=== PATIENT | female | born 1965 | race Two or more races ===

== ENCOUNTER 2018-08-18 11:04 | Inpatient (IN) | payer MEDICAID ==
[~2018-08-18] VITALS: Ht 157.5 cm; Wt 60.6 kg
[2018-08-18 11:12] VITALS: Ht 157.5 cm; Wt 60.6 kg
[2018-08-18 13:14] LABS: BASOPHIL % 0.4 % (0-2); PLATELET COUNT 194 x10^3mcL (130-400); RED CELL DISTRIBUTION WIDTH 12.8 % (11.5-14.5)
[2018-08-18 13:21] LABS: CALCIUM 9.7 mg/dL (8.5-10.1); CARBON DIOXIDE 33.4 mmol/L (21-32); CHLORIDE SERUM 103 mmol/L (98-107); CREATININE SERUM 0.8 mg/dL (0.6-1.0); GFR1 > 60 mL/min; GLUCOSE SERUM 91 mg/dL (74-106); POTASSIUM SERUM 3.9 mmol/L (3.5-5.1); SODIUM SERUM 141 mmol/L (136-145)
[2018-08-18 13:26] LABS: ALBUMIN 4.3 g/dL (3.4-5.0); ALKALINE PHOSPHATASE 117 U/L (46-116); ALT/SGPT 44 U/L (14-59); AST/SGOT 33 U/L (15-37); BILIRUBIN TOTAL 0.4 mg/dL (0.20-1.00)
[2018-08-18 13:27] LABS: TOTAL PROTEIN, SERUM 8.8 g/dL (6.4-8.2)
[2018-08-18] MEDS ORDERED: SYNTHROID25 MCG PO (14:34)
[2018-08-18] MEDS ORDERED: NOR10 PO (14:34)
[2018-08-18] MEDS ORDERED: MECLIZINE HYD12.5 MG PO (14:35)
[2018-08-18 15:23] LABS: CHOLESTEROL/HDL RATIO 3.3
[2018-08-18 15:30] VITALS: BP 145/82
[2018-08-18 15:30] LABS: UA SPECIFIC GRAVITY <=1.005 (1.005-1.035); microscopic required? YES; urine erythrocyte TRACE (NEGATIVE)
[2018-08-18 16:41] LABS: FREE T4 1.24 ng/dL (0.76-1.46); FREE THYROXINE INDEX 3.8 ug/dL (1.4-4.5); T4(THYROXINE) 11.2 ug/dL (4.7-13.3)
[2018-08-18 17:35] LABS: MAGNESIUM 2.3 mg/dL (1.8-2.4); PHOSPHOROUS 3.8 mg/dL (2.5-4.9)
[2018-08-18 18:33] VITALS: BP 144/84
[2018-08-18 20:52] VITALS: BP 135/75
[2018-08-19 05:31] VITALS: BP 132/84
[2018-08-19 06:13] LABS: BASOPHIL % 0.7 % (0-2); PLATELET COUNT 200 x10^3mcL (130-400); RED CELL DISTRIBUTION WIDTH 13.2 % (11.5-14.5)
[2018-08-19 06:17] LABS: CALCIUM 9.5 mg/dL (8.5-10.1); CARBON DIOXIDE 31.8 mmol/L (21-32); CHLORIDE SERUM 105 mmol/L (98-107); CREATININE SERUM 0.8 mg/dL (0.6-1.0); GFR1 > 60 mL/min; GLUCOSE SERUM 80 mg/dL (74-106); MAGNESIUM 2.4 mg/dL (1.8-2.4); PHOSPHOROUS 4.1 mg/dL (2.5-4.9); POTASSIUM SERUM 3.8 mmol/L (3.5-5.1); SODIUM SERUM 144 mmol/L (136-145)
[2018-08-19 09:02] VITALS: BP 107/69
[2018-08-19 12:53] VITALS: BP 129/76
[2018-08-19] MEDS ORDERED: LEVOFLOXACIN500 M1 PO (16:00)
[2018-08-19 17:06] VITALS: BP 110/62
[2018-08-19 17:07] VITALS: BP 110/62
== END 2018-08-19 17:53 | disposition home or self-care (01) | DRG 463 ==
LOC: ED 11:04 → DU 14:23
PROVIDERS: Emergency Medicine; Internal Medicine
DX: N39.0 Urinary tract infection, site not specified (principal); G90.9 Disorder of the autonomic nervous system, unspecified; R26.81 Unsteadiness on feet; E03.9 Hypothyroidism, unspecified; I10 Essential (primary) hypertension
CPT/HCPCS: 84439; 97116-GP; J0696; J8597; Q0092